=== PATIENT | female | born 1975 | race Asian ===

== ENCOUNTER → 2023-08-25 | Day surgery (SDC) | payer OTHER | END | disposition home or self-care (01) | LOC: JRADIR 11:32 | PROVIDERS: ATTEND Orthopaedic Surgery | PROC: BP29YZZ Computerized Tomography (CT Scan) of Left Shoulder using Other Contrast (ICD-10-PCS; principal; 2023-08-25) | DX: M25.512 Pain in left shoulder (principal) | CPT/HCPCS: 23350; 73040-TC-FY; 73200-TC-RT; 84703 ==